=== PATIENT | male | born 1935 | race Caucasian/White ===

== ENCOUNTER 2020-09-07 17:28 | Inpatient (IN) | payer MEDICARE ==
[~2020-09-07] VITALS: Ht 175.3 cm; Wt 104.5 kg
[2020-09-07] MEDS ORDERED: ACETAMINOPHEN500 M1 PO (17:35)
[2020-09-07] MEDS ORDERED: VENTOLIN HFA [SP8 GM INH (17:36)
[2020-09-07] MEDS ORDERED: ASPIRIN325 MG PO (17:37)
[2020-09-07] MEDS ORDERED: ZYLOPRIM100 MG PO (17:37)
[2020-09-07] MEDS ORDERED: NEURONTIN600 MG PO (17:38)
[2020-09-07] MEDS ORDERED: BUMETANIDE1 MG PO (17:38)
[2020-09-07] MEDS ORDERED: LIPITOR80 MG PO (17:38)
[2020-09-07] MEDS ORDERED: COZAAR25 MG PO (17:39)
[2020-09-07] MEDS ORDERED: TOPROL XL200 MG PO (17:39)
[2020-09-07] MEDS ORDERED: GLUCOPHAGE1000 MG PO (17:40)
[2020-09-07] MEDS ORDERED: TRINTELLIX5 MG PO (17:40)
[2020-09-07] MEDS ORDERED: FLOMAX0.4 MG PO (17:40)
[2020-09-07] MEDS ORDERED: ELIQUIS5 MG PO (17:41)
[2020-09-07] MEDS ORDERED: JARDIANCE10 MG PO (17:41)
[2020-09-07 18:47] LABS: BASOPHILS 0.4 % (0-2); HEMOGLOBIN 13.3 g/dL (13.5-17.5); LYMPHOCYTES 25.9 % (15-50); MCH 33.1 pg (26.0-34.0); MCV 97.2 fL (80.0-100.0); MONOCYTES 6.3 % (2-11); NEUTROPHILS 65.4 % (40-80); PLATELET COUNT 104 10x3/uL (130-400); RBC 4.01 10x6/uL (4.20-6.10); RDW 13.3 % (11.5-14.5); WBC 9.1 10x3/uL (4.8-10.8)
[2020-09-07 18:59] LABS: CALC OSMOLALITY 286 mosm/kg (275-300); CALCIUM 8.8 mg/dL (8.5-10.1); CARBON DIOXIDE 27.4 mmol/L (21.0-32.0); CHLORIDE - SERUM 105 mmol/L (98-107); CREATININE - SERUM 1.2 mg/dL (0.6-1.3); GLUCOSE 80 mg/dL (74-106); POTASSIUM - SERUM 4.3 mmol/L (3.5-5.1); SODIUM 143 mmol/L (136-145); UREA NITROGEN 20 mg/dL (7-18); eGFR NON AFRICAN AMERICAN 61 mL/min (90-120)
[2020-09-07 19:16] LABS: ALBUMIN 3.6 g/dL (3.4-5.0); ALKALINE PHOSPHATASE 63 U/L (30-120); ALT (SGPT) 20 U/L (10-68); BILIRUBIN - TOTAL 0.32 mg/dL (0.2-1.3); CKMB 2.4 U/L (0.0-3.6); CREATINE KINASE 131 UL (21-232); PRO BNP 391 pg/mL (0-450); PROTEIN - SERUM 6.7 g/dL (6.4-8.2)
[2020-09-07 19:36] LABS: TROPONIN-I < 0.017 ng/mL (0.000-0.060)
[2020-09-07 20:01] VITALS: BP 116/92
--- NOTE | 2020-09-07 20:30 | NUR ---
PT SUPINE POSITION, NAD NOTED. PT REQUESTING DINNER TRAY AT THIS TIME. PT GIVEN TURKEY SANDWICH, MILK AND ICE WATER. PT VOIDED APPROX 200ML CLEAR YELLOW URINE. COLLECTED AND SENT TO LAB.
[2020-09-07 21:00] VITALS: BP 166/62
[2020-09-07 21:56] LABS: BILIRUBIN NEGATIVE (NEGATIVE); KETONE NEGATIVE mg/dL (< 1+); NITRITE NEGATIVE (NEGATIVE); PH 5.5 (5.0-8.0); SQUAMOUS EPITHELIAL 2 HPF (0-4); UROBILINOGEN NORMAL mg/dL (< 2); WHITE CELLS - URINE 1 HPF (0-1)
[2020-09-07 22:00] VITALS: BP 131/56
[2020-09-07 23:00] VITALS: BP 159/68
--- NOTE | 2020-09-07 23:35 | NUR ---
PT USED URINAL AT THIS TIME, 375ML VOIDED. YELLOW CLEAR URINE.
[2020-09-08] VITALS (11 sets, daily range): BP systolic 111–185; BP diastolic 40–74; Ht 175.3 cm; Wt 104.5 kg
--- NOTE | 2020-09-08 06:05 | NUR ---
PT REPOSITIONED IN BED AT THIS TIME, SWALLOWED PILLS WHOLE REMAINS ON INSPECTOR PRECISION, BELONGINGS AND CALL LIGHT WITHIN REACH OF PT. DENIES CURRENT NEEDS.
[2020-09-08 07:14] LABS: BASOPHILS 0.6 % (0-2); EOSINOPHILS 3.2 % (0-7); HEMATOCRIT 38.3 % (42.0-54.0); LYMPHOCYTES 31.2 % (15-50); MCH 32.9 pg (26.0-34.0); MCV 96.8 fL (80.0-100.0); MEAN PLATELET VOLUME 9.2 fL (7.4-10.4); MONOCYTES 7.4 % (2-11); NEUTROPHILS 57.6 % (40-80); PLATELET COUNT 92 10x3/uL (130-400); RBC 3.96 10x6/uL (4.20-6.10); RDW 13.5 % (11.5-14.5)
[2020-09-08 07:38] LABS: ALBUMIN 3.3 g/dL (3.4-5.0); ALKALINE PHOSPHATASE 58 U/L (30-120); ALT (SGPT) 19 U/L (10-68); BILIRUBIN - TOTAL 0.44 mg/dL (0.2-1.3); CALC OSMOLALITY 281 mosm/kg (275-300); CALCIUM 8.8 mg/dL (8.5-10.1); CARBON DIOXIDE 28.7 mmol/L (21.0-32.0); CHLORIDE - SERUM 104 mmol/L (98-107); CHOLESTEROL, TOTAL 229 mg/dL (0-200); CREATININE - SERUM 1.1 mg/dL (0.6-1.3); HDL CHOLESTEROL 38 mg/dL (32-96); LDL CHOLESTEROL 134 mg/dL (0-100); LDL-HDL RATIO 3.5 ratio (1.5-3.5); MAGNESIUM - SERUM 1.5 mg/dL (1.8-2.4); POTASSIUM - SERUM 3.7 mmol/L (3.5-5.1); PRO BNP 551 pg/mL (0-450); PROTEIN - SERUM 6.4 g/dL (6.4-8.2); SODIUM 139 mmol/L (136-145); THYROID STIMULATING HORMONE 3.11 uIU/mL (0.36-3.74); TRIGLYCERIDE 288 mg/dL (30-200); TROPONIN-I < 0.017 ng/mL (0.000-0.060); UREA NITROGEN 18 mg/dL (7-18); eGFR NON AFRICAN AMERICAN 67 mL/min (90-120)
[2020-09-08 07:40] LABS: GLUCOSE 131 mg/dL (74-106)
[2020-09-08 07:46] LABS: APTT 29.1 SECONDS (22.8-39.4); INR 1.16 (0.85-1.17); PROTIME 13.7 SECONDS (11.6-15.0)
[2020-09-08 07:47] LABS: D-DIMER-QUANTITATIVE 0.69 ug/mLFEU (0.20-0.54)
--- NOTE | 2020-09-08 10:38 | NUR ---
UNABLE TO DO MRI DUE TO THE PATIENT HAVING A PACEMAKER. SPOKE WITH DR PUCKETT ABOUT THIS AND HE STATED TO CANCEL THE MRI. MRI WAS CANCELLED.
[2020-09-08 13:02] LABS: PLATELET ESTIMATE DECREASED
--- NOTE | 2020-09-08 15:41 | NUR ---
SPOKE WITH DR REVELES REGARDING THIS CONSULT AND HE STATED THAT HE RECOMMENDED A CTA PRIOR TO THE ARTERIOGRAM. NOTIFIED NURSE PURVI AND SHE REACHED OUT TO ALIZE SOTO AND SHE VERBALIZED THAT SHE WOULD CORRECT THE ORDER.
--- NOTE | 2020-09-08 20:45 | NUR ---
RECIEVED BEDSIDE REPORT. RESTING LAYING IN BED SUPINE WITH HOB ELEVATED. C/O MILD SHOULDER PAIN, RELIEVED BY TYLENOL PIV TO RIGHT AC PATENT DRESSING IS CLEAN, DRY, AND INTACT, AND IS SALINE LOCKED. AMBULATORY ADLIB WITH STEADY GAIT. EDUCATION PROVIDED ABOUT CALL LIGHT AND NEEDS. VOICED UNDERSTANDING. CALL LIGHT IN REACH BED LOCKED IN LOW POSTIION
[2020-09-09 04:00] VITALS: BP 178/70
[2020-09-09 06:15] LABS: BASOPHILS 0.6 % (0-2); EOSINOPHILS 4.2 % (0-7); HEMATOCRIT 39.3 % (42.0-54.0); HEMOGLOBIN 13.5 g/dL (13.5-17.5); LYMPHOCYTES 33.8 % (15-50); MCHC 34.4 g/dL (31.0-37.0); MCV 95.9 fL (80.0-100.0); MEAN PLATELET VOLUME 9.4 fL (7.4-10.4); MONOCYTES 7.4 % (2-11); PLATELET COUNT 96 10x3/uL (130-400); RDW 13.4 % (11.5-14.5); WBC 5.4 10x3/uL (4.8-10.8)
[2020-09-09 06:22] LABS: ALBUMIN 3.2 g/dL (3.4-5.0); ANION GAP 12.5 mmol/L (8-16); BILIRUBIN - TOTAL 0.46 mg/dL (0.2-1.3); CALCIUM 8.9 mg/dL (8.5-10.1); CARBON DIOXIDE 26.2 mmol/L (21.0-32.0); CREATININE - SERUM 1.1 mg/dL (0.6-1.3); MAGNESIUM - SERUM 1.8 mg/dL (1.8-2.4); POTASSIUM - SERUM 3.7 mmol/L (3.5-5.1); PROTEIN - SERUM 6.4 g/dL (6.4-8.2)
[2020-09-09 08:44] VITALS: BP 179/75
[2020-09-09 13:01] VITALS: BP 154/68
[2020-09-09 16:37] VITALS: BP 179/82
--- NOTE | 2020-09-09 17:03 | NUR ---
I have reviewed this patient and I concur with the Shift Assessment completed by the Licensed Practical Nurse today this shift.
[2020-09-09] MEDS ORDERED: COZAAR50 MG PO (17:10)
[2020-09-09] MEDS ORDERED: BAYER CHEWABLE81 MG PO (17:11)
--- NOTE | 2020-09-09 18:14 | NUR ---
DC HOME AT THIS TIME WITH ALL PERSONAL BELONGING. AND AND DAUGHTER AT BEDSIDE AND ALL VOICE UNDERSTANDING OF DC INSTRUCTION. C/L IN REACH AT BEDSIDE.
[2020-09-10 11:11] LABS: HEPATITIS C ANTIBODY <0.1 S/CO RAT (0.0-0.9)
[2020-09-11 21:06] LABS: HEPARIN INDUCED PLATELET AB 0.109 OD (0.000-0.400)
== END 2020-09-09 18:19 | disposition home or self-care (01) | DRG 69 ==
LOC: D.ER 17:28 → D.EDHOLD 19:47 → OBSVTIME 19:48 → D.EDHOLD 09-08 12:25 → D.MS 09-08 12:25
PROVIDERS: Emergency Medicine; Family Medicine; Internal Medicine Hematology & Oncology; ADMIT Family Medicine; ATTEND Family Medicine
DX: G45.9 Transient cerebral ischemic attack, unspecified (principal); G45.3 Amaurosis fugax; D64.9 Anemia, unspecified; D69.6 Thrombocytopenia, unspecified; I11.0 Hypertensive heart disease with heart failure; I50.9 Heart failure, unspecified; E11.40 Type 2 diabetes mellitus with diabetic neuropathy, unspecified; N40.0 Benign prostatic hyperplasia without lower urinary tract symptoms; M10.9 Gout, unspecified; F32.9 Major depressive disorder, single episode, unspecified; I48.91 Unspecified atrial fibrillation; I25.10 Atherosclerotic heart disease of native coronary artery without angina pectoris; E78.5 Hyperlipidemia, unspecified; F03.90 Unspecified dementia, unspecified severity, without behavioral disturbance, psychotic disturbance, mood disturbance, and anxiety; Z79.01 Long term (current) use of anticoagulants; I65.29 Occlusion and stenosis of unspecified carotid artery

== ENCOUNTER 2020-09-20 06:13 | Day surgery (SDC) | payer MEDICARE ==
--- NOTE | 2020-09-17 12:29 | NUR ---
ATTEMPTED TO CONFIRM PT APPT FOR 09/20/20 - NO ANSWER - LM TO CALL HERE
[~2020-09-20] VITALS: Ht 175.3 cm; Wt 105.5 kg
--- NOTE | ~2020-09-20 | HEMODYNAMI ---
PATIENT:KENNEY BANGURA MEDICAL RECORD: [id number] : 33 [id number] ADMISSION DATE: 09/20/20 Generatedon:19:39 Patient name: KENNEY BANGURA Patient #: [id number] SSN: [id number] B: 1935 Date of study: 09/20/2020 Page: Of Hemodynamic Procedure Report Patient Data Patient Demographics Procedure consent was obtained First Name: KENNEY Gender: Male Last Name: WILLEM : 1935 Middle Initial: G Age: 85 year(s) Patient #: [id number] Race: Unknown Additional ID: [id number] Contact details [address]: [address] [place] [address] State: [place] City: [place] Zip code: [address] Past Medical History Allergies Allergen Reaction Date Comments Reported Other allergy 09/20/2020 codeine, pcn, tamentadol, relafen Admission Admission Data Admission Date: 09/20/2020 Admission Time: 6:13 Procedure Procedure Types Cath Procedure Peripheral Cath Diagnostic Procedure 4-Vessel 4 Vessel Carotid Arterio Arch Procedure Description Procedure Date Procedure Date: 09/20/2020 Procedure Start Time: 8:53 Procedure End Time: 9:38 Procedure Staff Name Function Gabriel Calderon MD Performing Physician BARON JIMENEZ RT Monitor Alie Meza RN Nurse Akila Alfonso RN Nurse Imer Ham RT Scrub Procedure Data Cath Procedure Fluoroscopy Diagnostic fluoroscopy Total fluoroscopy Time: time: 11.4 min 11.4 min Contrast Material Contrast Material Type Amount (ml) Isovue 300 170 Entry Location Entry Primary Successful Side Size Upsize Upsize Entry Closure Succes sful Closure Location (Fr) 1 (Fr) 2 (Fr) Remarks Device Remarks Femoral Right 5 Fr Exoseal artery Diagnostic catheters Device Type Used For End Catheter Placement DIAGNOSTIC Pigtail 5Fr catheter ([id number]) Merit Impress Isaac 5FR. 100CM catheter ([id number]) Cook HN5 5F/100CM catheter ([id number]) Procedure Medications Medication Administration Route Dosage Heparin Flush Bag added to field 3 bags (1000units/500ml NS) Lidocaine 1% added to field 20 Versed I.V. 0.5 mg Fentanyl I.V. 25 mcg Heparin Bolus I.V. 4000 units Versed I.V. 0.5 mg Fentanyl I.V. 25 mcg Hemodynamics Rest Heart Rate: 70 (bpm) Snapshots Pre Cath Intra NCS Post Cath Vital Signs Time Heart Resp SPO2 etCO2 NIBP (mmHg) Rhythm Pain Sedation Rate (ipm) (%) (mmHg) Status Level (bpm) 8:40:37 78 24 99 24.1 172/70(139) NSR 0 (11) 10(A) , No pain 8:45:11 65 14 99 158/82(130) NSR 0 (11) 10(A) , No pain 8:49:42 69 8 100 25.6 172/76(129) NSR 0 (11) 10(A) , No pain 8:54:14 69 11 100 19.6 169/73(124) NSR 0 (11) 8(A) , No pain 8:58:45 68 13 99 24.8 164/74(123) NSR 0 (11) 8(A) , No pain 9:03:15 66 19 100 32.4 168/74(119) NSR 0 (11) 8(A) , No pain 9:07:45 66 30 99 40.7 170/70(121) NSR 0 (11) 8(A) , No pain 9:12:16 67 11 99 41.4 166/72(129) NSR 0 (11) 8(A) , No pain 9:16:48 67 32 98 38.4 171/70(134) NSR 0 (11) 9(A) , No pain 9:21:23 67 5 98 43.7 159/71(127) NSR 0 (11) 9(A) , No pain 9:25:53 67 7 98 41.4 167/73(118) NSR 0 (11) 9(A) , No pain 9:30:23 68 9 97 39.9 166/72(122) NSR 0 (11) 9(A) , No pain 9:35:02 67 15 98 29.3 159/77(131) NSR 0 (11) 9(A) , No pain Medications Time Medication Route Dose Verified Delivered Reason Notes Effec tiveness by by 8:38:53 Heparin Flush added 3 Gabriel Rios used for Bag to bags Yumiko Calderon MD procedure (1000units/500ml field NS) 8:39:06 Lidocaine 1% added 20ml Gabriel Rios for local to vial Yumiko Calderon MD anesthetic field 8:49:52 Versed I.V. 0.5 Gabriel Strange for mg Derrick Calderon RN sedation 8:50:05 Fentanyl I.V. 25 Gabriel Strange for mcg Derrick Calderon RN sedation 8:56:47 Heparin Bolus I.V. 4000 Gabriel Strange used for units Derrick Calderon RN procedure 9:32:14 Versed I.V. 0.5 Gabriel Strange for mg Derrick Calderon RN sedation 9:32:22 Fentanyl I.V. 25 Gabriel Strange for mcg Derrick Calderon RN sedation Procedure Log Time Note 8:01:58 Use device set IR Diagnostic 8:01:59 ACIST Syringe (07477) opened to sterile field. 8:02:01 ACIST Hand Control (47245) opened to sterile field. 8:02:02 ACIST Manifold (02096) opened to sterile field. 8:02:03 Bag Decanter (2002S) opened to sterile field. 8:02:03 Sterile Angiographic Pack opened to sterile field. 8:02:04 Tegaderm 4 x 4 (1626W) opened to sterile field. 8:02:26 DOC Extension wire (10244) opened to sterile field. 8:02:26 SHEATH 5FR [place] (IPC853) opened to sterile field. 8:02:27 MICROPUNCTURE 4FR Cook (C01281) opened to sterile field. 8:38:53 Heparin Flush Bag (1000units/500ml NS) 3 bags added to field was administered by Gabriel Calderon MD; used for procedure; Verbal order read back and verified. 8:38:54 Akila Alfonso RN sent for patient. Start room use. 8:38:56 Time tracking: Regular hours (M-F 7:00 - 5:00) 8:39:01 Plan of Care:Hemodynamics will remain stable., Cardiac rhythm will remain stable., Comfort level will be maintained., Respiratory function will remain adequate., Patient/ family verbilizes understanding of procedure., Procedure tolerated without complication., Recovers from procedure without complications.. 8:39:06 Lidocaine 1% 20ml vial added to field was administered by Gabriel Calderon MD; for local anesthetic; Verbal order read back and verified. 8:39:06 Patient received from Outpatients to IR Alert and oriented. Tansferred to table in Supine position. 8:39:08 Signed procedure consent form obtained from patient. 8:39:09 Warm blankets applied, and serafin hugger turned on for patient comfort. 8:39:09 Correct patient and procedure confirmed by team. 8:39:10 ECG and BP/O2 sat monitors applied to patient. 8:39:10 Vital chart was started 8:39:11 Baseline sample Acquired. 8:39:13 Full Disclosure recording started 8:39:14 8:39:21 H&P Date Dictated: 09/20/2020 H&P Addendum completed by physician on day of procedure. (MUST COMPLETE FOR ALL OUTPATIENTS). 8:39:23 Pre-procedure instructions explained to patient. 8:39:23 Pre-op teaching completed and patient verbalized understanding. 8:39:33 Family in patients room. 8:39:35 Patient NPO since Midnight. 8:40:12 Patient allergic to Other allergycodeine, pcn, tamentadol, relafen 8:40:18 Is the patient allergic to Iodine/contrast media? No. 8:43:15 Is patient on blood thinner?Yes. Megan 09/16 8:43:40 Patient diabetic? Yes. 8:43:41 If diabetic: On Metformin? No 8:43:43 ----Pre-sedation anethsthesia assessment.---- 8:43:47 Previous problem with sedation/anesthesia? No ? 8:43:48 Snore? Yes 8:43:50 Sleep apnea? Yes 8:43:51 Deviated septum? No 8:43:53 Opens mouth fully? Yes 8:43:53 Sticks out tongue? Yes 8:44:00 Airway obstruction? Yes CHF, CAD 8:44:04 Dentures? Yes out. 8:44:08 Pre procedure: right dorsailis pedis pulse Doppler 8:44:12 Pre procedure: right posterior tibial pulse Doppler 8:44:22 IV patent on arrival in left forearm with D5W at KVO. 8:44:28 Right groin area was prepped with chlora-prep and draped in sterile fashion 8:44:29 Alarms reviewed by RJelani N. 8:44:29 Sharps counted by scrub and verified by R.NJelani 8:44:30 8:49:52 Versed 0.5 mg I.V. was administered by Alie Meza RN; for sedation; Verbal order read back and verified. 8:50:05 Fentanyl 25 mcg I.V. was administered by Alie Meza RN; for sedation; Verbal order read back and verified. 8:50:21 Physician arrived 8:50:22 --------ALL STOP TIME OUT------ 8:50:22 Final Timeout: patient, procedure, and site verified with staff and physician. All members of the team are in agreement. 8:50:24 Right groin site verified by team. 8:50:27 Fire Safety Assessment: A--An alcohol-based skin anteseptic being used preoperatively., C--Open oxygen or nitrous oxide is being used. 8:50:33 Procedure started. 8:51:38 3a) 45-59 Moderately reduced kidney function. 8:52:25 Maximum allowable contrast dose (3.7 X eGFR X 0.75)152.63 ml. 8:52:30 Sedation plan: IV Moderate Sedation Medication:Versed, Fentanyl 8:53:11 Local anesthetic to right femoral artery with Lidocaine 1% by Gabriel Calderon MD.INITIAL ACCESS ONLY 8:53:15 Access obtained with 4Fr micropuncture. 8:54:03 AMPLATZ Super Stiff 75cm wire ([id number]) opened to sterile field. 8:54:06 A DIAGNOSTIC Pigtail 5Fr catheter (061038L) was opened to sterile field. 8:56:31 A 5 Fr sheath was inserted into the Right Femoral artery 8:56:47 Heparin Bolus 4000 units I.V. was administered by Alie Meza RN; used for procedure; Verbal order read back and verified. 9:01:17 GLIDE WIRE ANGLE 260cm (UJ3206) opened to sterile field. 9:01:19 A Merit Impress Isaac 5FR. 100CM catheter ([id number]) was advanced over the wire. 9:01:20 TORQUE DEVICE PLASTIC .038 ( TD01) opened to sterile field. 9:20:27 GLIDE CATHETER 5FR ANGLED 100cm (CG508) opened to sterile field. 9:23:27 A Truly Wireless HN5 5F/100CM catheter (R07497) was advanced over the wire. 9:32:14 Versed 0.5 mg I.V. was administered by Alie Meza RN; for sedation; Verbal order read back and verified. 9:32:21 EXOSEAL 5Fr (EX500) opened to sterile field. 9:32:22 Fentanyl 25 mcg I.V. was administered by Alie Meza RN; for sedation; Verbal order read back and verified. 9:32:27 Sheath removed intact; hemostasis achieved with Exoseal to the Right Femoral artery. 9:33:13 Procedure ended.(Physican Out) 9:36:36 Fluoroscopy time 11.40 minutes. 9:37:28 Dose Area Product 1052 mGy/cm. 9:37:35 Contrast amount:Isovue 300 170ml. 9:37:38 Maximum allowable dose exceeded? Yes. 9:37:42 Post Procedure Pulses reassessed and unchanged 9:37:45 Post-op/insertion site Right Femoral artery dressed using a 4 x 4 and Tegaderm. 9:37:48 Procedure and supply charges have been captured, reviewed, submitted and are correct. 9:37:55 Vital chart was stopped 9:37:57 See physician's report for complete and final results. 9:38:02 Procedure ended. 9:38:02 Full Disclosure recording stopped 9:38:09 End room use (Document Last) Device Usage Item Name Manufacture Quantity Catalog Hospital Part Current Minima l Lot# / Number Charge Number Stock Stock Serial# Code ACIST Syringe Acist 1 65035 071115 769048 435809 20 (12172) Medical Systems Inc ACIST Hand Acist 1 08251 843842 166259 910749 5 Control Medical (41506) Systems Inc ACIST Acist 1 89919 785007 210749 990192 5 Manifold Medical (03515) Systems Inc Bag Decanter Microtek 1 2001S 980603 63771 940896 5 (2001S) Medical Inc. Sterile Cardinal 1 [id number] 981372 569182 5 Angiographic Health Pack Tegaderm 4 x 3M 1 1626W 169324 321424 691210 5 4 (1626W) DOC Extension Francois 1 10755 600390 521299 072335 5 wire (72467) Vascular SHEATH 5FR Terumo 1 FEW184 248381 831870 090946 5 [place] (XIU292) MICROPUNCTURE Cook Medical 1 O79069 106597 342351 917304 5 4FR Cook (J10869) AMPLATZ Super Era 1 [id number] 205899 472643 537803 5 Stiff 75cm Scientific wire ([id number]) DIAGNOSTIC Cardinal 1 [id number] 890634 273915 562882 5 Pigtail 5Fr Health catheter (490946U) GLIDE WIRE Terumo 1 IH6490 235434 406713 707161 5 ANGLE 260cm (YN5425) Merit Impress Merit 1 [id number] 923760 849918 [address] [facility] Medical 5FR. 100CM catheter ([id number]) TORQUE DEVICE Era 1 TD01 301310 734605 346235 5 PLASTIC .038 Scientific ( TD01) GLIDE Terumo 1 CG508 241774 13042 546964 4 CATHETER 5FR ANGLED 100cm (CG508) Cook HN5 Cook Medical 1 W15956 949074 952361 2 5F/100CM catheter (A90320) EXOSEAL 5Fr Cardinal 1 EX500 670316 130794 281514 10 (EX500) Health Signature Audit [place] Stage Time Signature Unsigned Intra-Procedure 09/20/2020 Imer 9:39:33 AM [place] RT (R) (CV) [facility] [address] [place] [address]
[~2020-09-20 06:13] MED LIST: ACETAMINOPHEN500 M1 PO; ASPIRIN325 MG PO; BAYER CHEWABLE81 MG PO; BUMETANIDE1 MG PO; COZAAR25 MG PO; COZAAR50 MG PO; ELIQUIS5 MG PO; FLOMAX0.4 MG PO; GLUCOPHAGE1000 MG PO; JARDIANCE10 MG PO; LIPITOR80 MG PO; NEURONTIN600 MG PO; TOPROL XL200 MG PO; TRINTELLIX5 MG PO; VENTOLIN HFA [SP8 GM INH; ZYLOPRIM100 MG PO
[2020-09-20 07:03] LABS: BASOPHILS 0.6 % (0-2); EOSINOPHILS 3.3 % (0-7); HEMATOCRIT 42.8 % (42.0-54.0); HEMOGLOBIN 14.8 g/dL (13.5-17.5); LYMPHOCYTES 26.3 % (15-50); MCH 32.8 pg (26.0-34.0); MCHC 34.6 g/dL (31.0-37.0); MCV 94.9 fL (80.0-100.0); MEAN PLATELET VOLUME 8.7 fL (7.4-10.4); MONOCYTES 7.4 % (2-11); NEUTROPHILS 62.4 % (40-80); PLATELET COUNT 103 10x3/uL (130-400); RBC 4.52 10x6/uL (4.20-6.10); RDW 13.5 % (11.5-14.5)
[2020-09-20 07:09] LABS: ANION GAP 13.1 mmol/L (8-16); CALCIUM 9.2 mg/dL (8.5-10.1); CARBON DIOXIDE 25.9 mmol/L (21.0-32.0); CREATININE - SERUM 1.3 mg/dL (0.6-1.3)
[2020-09-20 07:44] LABS: APTT 28.2 SECONDS (22.8-39.4); INR 1.1 (0.85-1.17); PROTIME 13.1 SECONDS (11.6-15.0)
[2020-09-20 07:59] VITALS: BP 164/56; Ht 175.3 cm; Wt 105.5 kg
--- NOTE | 2020-09-20 15:20 | NUR ---
0955 VITAL SIGNS ARE BEING RECORDED ON POST PROCEDURE PAPER FORM THAT IS IN THE CHART ORDERED. 1255 IV DC'D. CATHETER TIP INTACT. NO BLEEDING AT SITE. COBAN DRESSING APPLIED.
== END 2020-09-20 13:02 | disposition home or self-care (01) ==
LOC: D.RAD 06:13
PROVIDERS: ATTEND General Practice
DX: I65.22 Occlusion and stenosis of left carotid artery (principal); Z79.01 Long term (current) use of anticoagulants; I48.91 Unspecified atrial fibrillation; I25.10 Atherosclerotic heart disease of native coronary artery without angina pectoris; Z86.73 Personal history of transient ischemic attack (TIA), and cerebral infarction without residual deficits; D64.9 Anemia, unspecified; D69.6 Thrombocytopenia, unspecified; I10 Essential (primary) hypertension; E11.40 Type 2 diabetes mellitus with diabetic neuropathy, unspecified; I50.9 Heart failure, unspecified